=== PATIENT | female | born 1980 | race African-American/Black ===

== ENCOUNTER 2017-02-13 11:43 | Emergency (ER) | payer OTHER ==
[~2017-02-13] VITALS: Ht 157.5 cm; Wt 78.5 kg
[2017-02-13 13:13] VITALS: BP 119/73
--- NOTE | 2017-02-13 13:26 | PHYS DOC ---
Past Medical History Past Medical History: No Pertinent History Past Surgical History: No Surgical History Additional Information: 1 pack/wk Alcohol Use: Occasionally Drug Use: Cocaine Social History Narrative: occassionally Adult General Chief Complaint Chief Complaint: HAND PROBLEM HPI HPI Patient is a 36 year old female who presents with a 6 out of 10 right hand pain radiating to the right jaw area that began at 11 AM this morning while she was standing at home. Patient states the pain is worse when she tries to lift her right upper extremity up. Patient denies any nausea or vomiting or chest pain or shortness of breath with the pain. Denies any significant previous medical history. She states she does not have a PCP. Review of Systems Review of Systems Constitutional: Denies fever or chills [] Eyes: Denies change in visual acuity, redness, or eye pain [] HENT: Denies nasal congestion or sore throat [] Respiratory: Denies cough or shortness of breath [] Cardiovascular: No additional information not addressed in HPI [] GI: Denies abdominal pain, nausea, vomiting, bloody stools or diarrhea [] : Denies dysuria or hematuria [] Musculoskeletal: Right hand pain Integument: Denies rash or skin lesions [] Neurologic: Denies headache, focal weakness or sensory changes [] Endocrine: Denies polyuria or polydipsia [] Current Medications Current Medications Current Medications Medications (Trade) Dose Ordered Sig/Paige Start Time Stop Time Status Last Admin Dose Admin Aspirin (Desmond Aspirin) 325 mg 1X ONCE 02/13/17 13:30 02/13/17 13:31 DC 02/13/17 13:52 325 MG Allergies Allergies Allergies Coded Allergies Type Severity Reaction Last Updated Verified No Known Drug Allergies 02/13/17 No Physical Exam Physical Exam Constitutional: Well developed, well nourished, no acute distress, non-toxic appearance. [] HENT: Normocephalic, atraumatic, bilateral external ears normal, oropharynx moist, no oral exudates, nose normal. [] Eyes: PERRLA, EOMI, conjunctiva normal, no discharge. [] Neck: Normal range of motion, no tenderness, supple, no stridor. [] Cardiovascular:Heart rate regular rhythm, no murmur [] Lungs & Thorax: Bilateral breath sounds clear to auscultation [] Abdomen: Bowel sounds normal, soft, no tenderness, no masses, no pulsatile masses. [] Skin: Warm, dry, no erythema, no rash. [] Back: No tenderness, no CVA tenderness. [] Extremities: No tenderness, no cyanosis, no clubbing, ROM intact, no edema. [] Neurologic: Alert and oriented X 3, normal motor function, normal sensory function, no focal deficits noted. [] Psychologic: Affect normal, judgement normal, mood normal. [] Current Patient Data Vital Signs Vital Signs Date Time Temp Pulse Resp B/P Pulse Ox O2 Delivery O2 Flow Rate FiO2 02/13/17 13:13 91 16 95 Room Air Lab Values Laboratory Tests Test 02/13/17 12:26 02/13/17 13:01 02/13/17 14:20 POC Urine HCG, Qualitative Hcg negative (Negative) Urine Collection Type Unknown Urine Color Yellow Urine Clarity Clear Urine pH 6.5 Urine Specific [place] 1.010 Urine Protein Negativemg/dL (NEG-TRACE) Urine Glucose (UA) Negativemg/dL (NEG) Urine Ketones (Stick) Negativemg/dL (NEG) Urine Blood Large (NEG) Urine Nitrite Negative (NEG) Urine Bilirubin Negative (NEG) Urine Urobilinogen Dipstick 1.0mg/dL (0.2 mg/dL) Urine Leukocyte Esterase Negative (NEG) Urine RBC 1-2/HPF (0-2) Urine WBC 0/HPF (0-4) Urine Squamous Epithelial Cells Few/LPF Urine Bacteria Few/HPF (0-FEW) Urine Mucus Slight/LPF Urine Opiates Screen Neg (NEG) Urine Methadone Screen Neg (NEG) Urine Barbiturates Neg (NEG) Urine Phencyclidine Screen Neg (NEG) Urine Amphetamine/Methamphetamine Neg (NEG) Urine Benzodiazepines Screen Neg (NEG) Urine Cocaine Screen Pos (NEG) Urine Cannabinoids Screen Neg (NEG) Urine Ethyl Alcohol (NEG) White Blood Count 5.0x10^3/uL (4.0-11.0) Red Blood Count 4.24x10^6/uL (3.50-5.40) Hemoglobin 12.4g/dL (12.0-15.5) Hematocrit 38.2% (36.0-47.0) Mean Corpuscular Volume 90fL (79-100) Mean Corpuscular Hemoglobin 29pg (25-35) Mean Corpuscular Hemoglobin Concent 33g/dL (31-37) Red Cell Distribution Width 15.2% (11.5-14.5) H Platelet Count 264x10^3/uL (140-400) Neutrophils (%) (Auto) 35% (31-73) Lymphocytes (%) (Auto) 47% (24-48) Monocytes (%) (Auto) 10% (0-9) H Eosinophils (%) (Auto) 6% (0-3) H Basophils (%) (Auto) 1% (0-3) Neutrophils # (Auto) 1.8x10^3uL (1.8-7.7) Lymphocytes # (Auto) 2.4x10^3/uL (1.0-4.8) Monocytes # (Auto) 0.5x10^3/uL (0.0-1.1) Eosinophils # (Auto) 0.3x10^3/uL (0.0-0.7) Basophils # (Auto) 0.0x10^3/uL (0.0-0.2) Prothrombin Time 13.1SEC (11.7-14.0) Prothrombin Time INR 1.1 (0.8-1.1) Sodium Level 142mmol/L (136-145) Potassium Level 4.1mmol/L (3.5-5.1) Chloride Level 104mmol/L (98-107) Carbon Dioxide Level 27mmol/L (21-32) Anion Gap 11 (6-14) Blood Urea Nitrogen 10mg/dL (7-20) Creatinine 0.8mg/dL (0.6-1.0) Estimated GFR (Cockcroft-Gault) 97.7 Glucose Level 81mg/dL (70-99) Calcium Level 9.4mg/dL (8.5-10.1) Magnesium Level 2.3mg/dL (1.8-2.4) Creatine Kinase 285U/L (26-192) H Creatine Kinase MB (Mass) 0.6ng/mL (0.0-3.6) Creatine Kinase MB Relative Index 0.2% (0-4) Troponin I Quantitative < 0.017ng/mL (0.000-0.055) VL-Fvj-T-Type Natriuretic Peptide 32pg/mL (0-124) Laboratory Tests 02/13/17 14:20 Laboratory Tests 02/13/17 14:20 EKG EKG [] Radiology/Procedures Radiology/Procedures [] Course & Med Decision Making Course & Med Decision Making Pertinent Labs and Imaging studies reviewed. (See chart for details) Patient is in the ED complaining of right hand pain radiating to the right jaw. She has no risk factors. 13:46 EKG was interpreted by Dr. Clark, sinus rate them, heart rate 85, QRS interval 80, no STEMI Dragon Disclaimer Dragon Disclaimer This electronic medical record was generated, in whole or in part, using a voice recognition dictation system. Departure Departure Impression: Primary Impression: Musculoskeletal pain Disposition: HOME, SELF-CARE Condition: STABLE Referrals: NO PCP (PCP) Follow-up with your own doctor in one week Patient Instructions: Musculoskeletal Pain Additional Instructions: You were seen for musculoskeletal pain of the right upper extremity. Follow-up with your own doctor next week. Take the prescribed medicines as ordered. Scripts Naproxen 500 Mg Tablet.dr1 Tab PO BID #60 TAB Ref 1 Prov:NIKKIE LOPEZ APRN 02/13/17 Cyclobenzaprine Hcl 10 Mg Tablet1 Tab PO TID #30 TAB Prov:NIKKIE LOPEZ APRN 02/13/17 NIKKIE LOPEZ APRN Feb 13, 2017 13:26
[2017-02-13] MEDS ORDERED: ASPIRIN 325 MG TABLET PO ONE (13:30)
--- NOTE | 2017-02-13 13:39 | RAD ---
Portable chest, 02/13/2017: History: Arm pain The heart size and pulmonary vascularity are normal. No pulmonary infiltrates are seen. There is no evidence of pleural fluid. IMPRESSION: No acute cardiopulmonary abnormality is detected.
--- NOTE | 2017-02-13 13:58 | EKG ---
[facility] [address] [place] [address] Test Date: 2017-02-13 Test Time: 13:46:29 Pat Name: CELESTE ANDREA Department: Room: Gender: F Price Clerk: : 1980 Requested By: NIKKIE LOPEZ Order Number: [id number] Reading MD: Samira Howard Measurements Intervals [place] Rate: 85 P: 53 TN: 164 QRS: -4 QRSD: 80 T: -11 QT: 386 QTc: 465 Interpretive Statements SINUS RHYTHM LEFTWARD AXIS NO SPECIFIC ECG ABNORMALITIES RI6.01 No previous ECG available for comparison Electronically Signed On 02-14-2017 20:22:40 CDT by Samira Howard
[2017-02-13 14:33] LABS: BASO % 1 % (0-3); EOS % 6 % (0-3); HEMATOCRIT 38.2 % (36.0-47.0); HEMOGLOBIN 12.4 g/dL (12.0-15.5); LYMPH # 2.4 x10^3/uL (1.0-4.8); LYMPH % 47 % (24-48); MEAN CORPUSCULAR HEMOGLOBIN 29 pg (25-35); MEAN CORPUSCULAR HGB CONC 33 g/dL (31-37); MEAN CORPUSCULAR VOLUME 90 fL (79-100); MONO % 10 % (0-9); NEUT % 35 % (31-73); PLATELET COUNT 264 x10^3/uL (140-400); RED BLOOD COUNT 4.24 x10^6/uL (3.50-5.40); RED CELL DISTRIBUTION WIDTH 15.2 % (11.5-14.5)
[2017-02-13 14:40] LABS: INR 1.1 (0.8-1.1); PROTHROMBIN TIME PATIENT 13.1 SEC (11.7-14.0)
[2017-02-13 14:59] LABS: CALCIUM 9.4 mg/dL (8.5-10.1); CREATININE 0.8 mg/dL (0.6-1.0); GFR 97.7; MAGNESIUM 2.3 mg/dL (1.8-2.4); POTASSIUM 4.1 mmol/L (3.5-5.1)
[2017-02-13 15:09] LABS: CKMB INDEX 0.2 % (0-4); CKMB MASS 0.6 ng/mL (0.0-3.6)
[2017-02-13 15:19] LABS: BILIRUBIN,URINE NEGATIVE (NEG); GLUCOSE,URINE NEGATIVE (NEG); NITRITE,URINE NEGATIVE (NEG); PH,URINE 6.5; PROTEIN,URINE NEGATIVE (NEG-TRACE)
[2017-02-13 15:26] LABS: BARBITURATES NEG (NEG); BENZODIAZEPINES NEG (NEG); CANNABINOIDS NEG (NEG); COCAINE POS (NEG); METHADONE NEG (NEG); OPIATES NEG (NEG); PHENCYCLIDINE NEG (NEG)
[2017-02-13 15:34] LABS: BACTERIA,URINE FEW /HPF (0-FEW); SQUAMOUS EPITHELIAL CELL,UR FEW /LPF; WBC,URINE 0 /HPF (0-4)
[2017-02-13] MEDS ORDERED: CYCL10TA2 PO (15:59)
[2017-02-13] MEDS ORDERED: NAPR500T8 PO (15:59)
== END 2017-02-13 16:06 | disposition home or self-care (01) ==
LOC: ER 11:43
DX: M79.1 Myalgia (principal); M79.641 Pain in right hand; F14.10 Cocaine abuse, uncomplicated; F17.210 Nicotine dependence, cigarettes, uncomplicated
CPT/HCPCS: 36415; 71010; 80048; 81001; 81025; 82553; 83735; 83880; 84484; 85027; 85610; 93005; 99285; G0481